=== PATIENT | male | born 1990 | race Caucasian/White ===

== ENCOUNTER 2017-06-04 17:19 | Emergency (ER) | payer SELFPAY ==
--- NOTE | 2017-06-04 18:03 | DIAGNOSTIC IMAGING REPORT ---
PROCEDURE: XR FOOT 3 VIEWS - LEFT INDICATION: TRAUMA/INJURY TECHNIQUE: Three views. COMPARISON: None. FINDINGS: Osseous structures and joint spaces are normal. IMPRESSION: 1. Normal left foot.
--- NOTE | 2017-06-04 18:43 | ED ORDER SUMMARY ---
..... Patient: GERALDO CABRERA OrderSheet [facility] VisitID: [id number] [address] [place] [address] 27y, M Registration Date/Time: 06/04/2017 ORDER SHEET Weight: 97.5 kg (stated) Allergies: No Known Drug Allergy GENERAL ORDERS: Foot 3V Left Urgent (17:33 06/04/2017 HBivens A.R.N.P.) (Ack 17:44 LNations ER Tech1) (17:53 [facility] Inocente Wrap (18:42 06/04/2017 HBivens A.R.N.P.) (18:50 DDean R.N.) MEDICATION ORDERS: Hydrocodone-APAP PO 5/325 mg (NOW, HIGH ALERT MEDICATION) (18:43 06/04/2017 HBivens A.R.N.P.) (Ack 18:44 DDean R.N.) (18:50 DDean R.N.) IV FLUIDS: ORDER SHEET NOTES: [Electronically signed by Gemma River R.N. (19:24 06/04/2017)] [Electronically signed by Courtney MorseR.N.P. (19:54 06/04/2017)] [Electronically locked/signed by Gemma River R.N. (19:24 06/04/2017)]
--- NOTE | 2017-06-04 18:43 | ED CLINICAL REPORT ---
Clinical Report - Physicians/Mid Levels [facility] [address] [place] [address] 06/04/2017 17:21 Patient: GERALDO CABRERA Time Seen: 1723; upon arrival, initial patient contact, initial documentation, patient care assumed. Arrived- By private vehicle. Historian- patient. HISTORY OF PRESENT ILLNESS Chief Complaint: Injury to the left foot. The injury happened today. Occurred on a street. The patient sustained a twisting injury while stepping down (stepping off curb and twisted foot). Patient is experiencing moderate pain. Patient denies injury to the head or neck. No other injury. REVIEW OF SYSTEMS The patient complains of pain on weight bearing. He has had swelling. He has had new onset of localized numbness of the left foot (mild), (- gone now, was only numb for a couple of hours, now it is throbbing). No tingling or weakness. PAST HISTORY Negative. SOCIAL HISTORY Light tobacco smoker. No alcohol use or drug use. No recent travel. Is a local resident. FAMILY HISTORY No significant family medical history. ADDITIONAL NOTES The nursing notes have been reviewed with agreement regarding the chief complaint, HPI, ROS, PMH and patient medications and allergies. PHYSICAL EXAM Vital Signs: 06/04/2017 17:22 BP: 131/82. HR: 88. RR: 20. O2 saturation: 99%. Temp: 97.9 F. Pain level now: 10. Have been reviewed as normal and appear to be correct. Appearance: Alert. Oriented X3. No acute distress. Head: Head atraumatic. Eyes: Pupils equal, round and reactive to light. Eyes normal inspection. Respiratory: No respiratory distress. Skin: Skin intact. Skin warm and dry. Extremities: Ankle injury present. Left foot: mild tenderness and swelling of the proximal lateral aspect of the foot. Neurovascular intact distally. No erythema, laceration, abrasion, ecchymosis or puncture wound. No foreign body or deformity. No limitation of weight bearing. No foot injury. Foot and ankle exam otherwise negative. Extremities otherwise negative. Gait: Abnormal gait. Gait not tested due to pain. Neuro, Vascular and Tendons: Vascular status intact. Sensation intact. Motor intact. Tendon function intact. Neuro: Oriented X 3. No motor deficit. No sensory deficit. Note: isolated injury to foot. LABS, X-RAYS, AND EKG X-Rays: Left foot negative. Lt Foot X-ray: (IMPRESSION: 1. Normal left foot. Electronically Final signed by:Kristian Howard MD 06/04/2017 6:04:05 PM). PROGRESS AND PROCEDURES Patient counseled in person regarding the patient's stable condition, test results and diagnosis. 18:13. Differential Diagnosis: Other possible considerations: foot sprain vs fx. Above considerations are based on history, physical exam and X-Ray data. Differential diagnosis was discussed with patient. Disposition: Discharged home in good and improved condition (18:43). Condition: good and stable. CLINICAL IMPRESSION Sprain of the tarsal ligaments of the left foot. INSTRUCTIONS Apply ice for 20 minutes four times a day for two days until better. Don't apply ice directly to skin. Wear elastic wrap (Inocente wrap) as directed for one weeks until better. Elevate affected areas above chest level for two days until better. You may walk and bear weight as tolerated. Do not work today, for two days. Warnings: GENERAL WARNINGS: Return or contact your physician immediately if your condition worsens or changes unexpectedly, if not improving as expected, or if other problems arise. Specifically return if problem worsens. Prescription Medications: Ultram 50 mg tablets: take 1-2 orally every 6 hours as needed for pain. Dispense twenty (20). No refills. Substitution is permissible. Follow-up: Follow up with your doctor in about one week as needed. Call for an appointment. Summary of care provided to patient. Understanding of the discharge instructions verbalized by patient. (Electronically signed by Courtney Morse A.R.N.P. 06/04/2017 19:54)
--- NOTE | 2017-06-04 18:43 | ED NURSING NOTES ---
Clinical Report - Nurses [facility] [address] [place] [address] 06/04/2017 17:21 Patient: GERALDO CABRERA TRIAGE Triage time 1722. Acuity: LEVEL 4. Chief Complaint: INJURY TO LEFT ANKLE and LEFT FOOT. 17:22. --17:32 Gemma River R.N. 17:22 06/04/17. BP: 131/82. HR: 88. RR: 20. O2 saturation: 99%. Temp: 97.9 F. Pain level now: 06/01. --17:32 Gemma River R.N. Weight: 97.5 kg stated. Height/Length: 74 inches Per Patient. BMI: 27.6. --17:30 Gemma River R.N. Medications Tylenol 650mg at 0200. --17:31 Gemma River R.N. Allergies No Known Drug Allergy. --17:30 Gemma River R.N. History Arrived by private vehicle. Historian: patient. Accompanied by friend. No primary care physician. This occurred (1030). Mechanism of injury: sustained a twisting injury (twisted after stepping down from curb, ankle gave way "I have a weak ankle on that side"). He has had numbness and trouble walking. PAST MEDICAL HX: ( chronic headaches). SURGERY HX: Tonsillectomy. SOCIAL HX: Light tobacco smoker (cigarette)- less than 1/2 a pack per day. No alcohol use or drug use. --17:32 Gemma River R.N. PROBLEMS: no known problems. Interventions ID band on patient. To treatment room. --17:32 Gemma River R.N. PHYSICAL ASSESSMENT 17:22. To room via wheelchair. GENERAL / NEURO / PSYCH: Oriented X 4. Appears in pain. EXTREMITIES: Limited ROM present. Capillary refill is less than 2 seconds in the extremities. Limping gait. He was unable to bear weight. Left foot: tenderness, swelling and ecchymosis. SKIN: Skin is warm and dry. --17:33 Gemma River R.N. NURSING PROGRESS NOTES 17:22. Cold pack applied. Reassurance given. Patient identifiers checked. Call light placed in reach. Side rails up. Bed placed in lowest position. Patient ready for evaluation- chart flagged. --17:32 Gemma River R.N. 17:45. ( port x-ray at bedside to do films). --18:20 Gemma River R.N. 18:45 06/04/2017 Hydrocodone-APAP (Hydrocodone-Acetaminophen) PO 5/325 mg Tablets 1 tab given. Allergies verified, confirmed 5 rights and sedative warning given to the patient. --18:50 Gemma River R.N. 18:40. 4 inch eric bandage applied to left ankle and left foot by nurse; distal pulses intact, sensation intact and motor function within normal limits. --18:51 Gemma River R.N. 18:45. ( po meds given for pain). --18:53 Gemma River R.N. DISPOSITION / DISCHARGE 18:55 06/04/17. Condition at departure: improved and stable. No learning barriers present. Discharge instructions provided and reviewed with the patient. Reviewed medication(s) (ultram). Treatments reviewed (ice, elevate, eric). Patient verbalized understanding. Written instructions provided in [place]. The patient was discharged home and accompanied by content development specialist. He left the Emergency Department in a wheelchair and via private vehicle. Fruit Harvester driving. --18:55 Gemma River R.N. 18:53 06/04/17. BP: 119/85. HR: 64. RR: 16. O2 saturation: 99%. Temp: deferred. Pain level now: 05/02. --18:55 Gemma River R.N. Departure time: 1899. --19:23 Gemma River R.N. Locked/Released at 06/04/2017 19:24 by Gemma River R.N.
--- NOTE | 2017-06-04 18:43 | ED NURSING NOTES ---
Clinical Report - Nurses Located Within [facility] [address] [place] [address] 06/04/2017 17:21 Patient: GERALDO CABRERA TRIAGE Triage time 1722. Acuity: LEVEL 4. Chief Complaint: INJURY TO LEFT ANKLE and LEFT FOOT. 17:22. --17:32 Gemma River R.N. 17:22 06/04/17. BP: 131/82. HR: 88. RR: 20. O2 saturation: 99%. Temp: 97.9 F. Pain level now: 06/01. --17:32 Gemma River R.N. Weight: 97.5 kg stated. Height/Length: 74 inches Per Patient. BMI: 27.6. --17:30 Gemma River R.N. Medications Tylenol 650mg at 0200. --17:31 Gemma River R.N. Allergies No Known Drug Allergy. --17:30 Gemma River R.N. History Arrived by private vehicle. Historian: patient. Accompanied by friend. No primary care physician. This occurred (1030). Mechanism of injury: sustained a twisting injury (twisted after stepping down from curb, ankle gave way "I have a weak ankle on that side"). He has had numbness and trouble walking. PAST MEDICAL HX: ( chronic headaches). SURGERY HX: Tonsillectomy. SOCIAL HX: Light tobacco smoker (cigarette)- less than 1/2 a pack per day. No alcohol use or drug use. --17:32 Gemma River R.N. PROBLEMS: no known problems. Interventions ID band on patient. To treatment room. --17:32 Gemma River R.N. PHYSICAL ASSESSMENT 17:22. To room via wheelchair. GENERAL / NEURO / PSYCH: Oriented X 4. Appears in pain. EXTREMITIES: Limited ROM present. Capillary refill is less than 2 seconds in the extremities. Limping gait. He was unable to bear weight. Left foot: tenderness, swelling and ecchymosis. SKIN: Skin is warm and dry. --17:33 Gemma River R.N. NURSING PROGRESS NOTES 17:22. Cold pack applied. Reassurance given. Patient identifiers checked. Call light placed in reach. Side rails up. Bed placed in lowest position. Patient ready for evaluation- chart flagged. --17:32 Gemma River R.N. 17:45. ( port x-ray at bedside to do films). --18:20 Gemma River R.N. 18:45 06/04/2017 Hydrocodone-APAP (Hydrocodone-Acetaminophen) PO 5/325 mg Tablets 1 tab given. Allergies verified, confirmed 5 rights and sedative warning given to the patient. --18:50 Gemma River R.N. 18:40. 4 inch eric bandage applied to left ankle and left foot by nurse; distal pulses intact, sensation intact and motor function within normal limits. --18:51 Gemma River R.N. 18:45. ( po meds given for pain). --18:53 Gemma River R.N. DISPOSITION / DISCHARGE 18:55 06/04/17. Condition at departure: improved and stable. No learning barriers present. Discharge instructions provided and reviewed with the patient. Reviewed medication(s) (ultram). Treatments reviewed (ice, elevate, eric). Patient verbalized understanding. Written instructions provided in Malawian. The patient was discharged home and accompanied by college associate. He left the Emergency Department in a wheelchair and via private vehicle. Final Assembly Worker driving. --18:55 Gemma River R.N. 18:53 06/04/17. BP: 119/85. HR: 64. RR: 16. O2 saturation: 99%. Temp: deferred. Pain level now: 05/02. --18:55 Gemma River R.N. Departure time: 1899. --19:23 Gemma River R.N. Locked/Released at 06/04/2017 19:24 by Gemma River R.N.
--- NOTE | 2017-06-04 18:43 | ED ORDER SUMMARY ---
..... Patient: GERALDO CABRERA OrderSheet [facility] VisitID: [id number] [address] [place] [address] 27y, M Registration Date/Time: 06/04/2017 ORDER SHEET Weight: 97.5 kg (stated) Allergies: No Known Drug Allergy GENERAL ORDERS: Foot 3V Left Urgent (17:33 06/04/2017 HBivens A.R.N.P.) (Ack 17:44 LNations ER Tech1) (17:[facility] Inocente Wrap (18:42 06/04/2017 HBivens A.R.N.P.) (18:50 DDean R.N.) MEDICATION ORDERS: Hydrocodone-APAP PO 5/325 mg (NOW, HIGH ALERT MEDICATION) (18:43 06/04/2017 HBivens A.R.N.P.) (Ack 18:44 DDean R.N.) (18:50 DDean R.N.) IV FLUIDS: ORDER SHEET NOTES: [Electronically signed by Gemma River R.N. (19:24 06/04/2017)] [Electronically signed by Courtney MorseR.N.P. (19:54 06/04/2017)] [Electronically locked/signed by Gemma River R.N. (19:24 06/04/2017)]
--- NOTE | 2017-06-04 19:54 | ED MED RECONCILIATION SUMMARY ---
Patient: GERALDO CABRERA Medication Reconciliation Report [facility] VisitID: [id number] [address] [place] [address] 27y, M Registration Date/Time: 06/04/2017 Weight: 97.5 kg Height/Length: 74 in. BMI: 27.6 ALLERGIES: No Known Drug Allergy The patient's Home Medications are listed below: THE FOLLOWING MEDICATIONS NEED TO BE RECONCILED: Tylenol 650mg at 0200 The source(s) of the original Home Medication information: Not obtained. The following Medications were given to the patient in the Emergency Department: Hydrocodone-APAP [PO] PO 1 tab, administered: 06/04/2017 6:45:00 PM The following Medications were prescribed to the patient: Ultram 50 mg tablets: take 1-2 orally every 6 hours as needed for pain. Dispense twenty (20). No refills. Substitution is permissible. -- Courtney Morse A.R.N.P.
--- NOTE | 2017-06-04 19:54 | ED MED RECONCILIATION SUMMARY ---
Patient: GERALDO CABRERA Medication Reconciliation Report [facility] VisitID: [id number] [address] [place] [address] 27y, M Registration Date/Time: 06/04/2017 Weight: 97.5 kg Height/Length: 74 in. BMI: 27.6 ALLERGIES: No Known Drug Allergy The patient's Home Medications are listed below: THE FOLLOWING MEDICATIONS NEED TO BE RECONCILED: Tylenol 650mg at 0200 The source(s) of the original Home Medication information: Not obtained. The following Medications were given to the patient in the Emergency Department: Hydrocodone-APAP [PO] PO 1 tab, administered: 06/04/2017 6:45:00 PM The following Medications were prescribed to the patient: Ultram 50 mg tablets: take 1-2 orally every 6 hours as needed for pain. Dispense twenty (20). No refills. Substitution is permissible. -- Courtney Morse A.R.N.P.
--- NOTE | 2017-06-04 19:54 | ED MAR SUMMARY ---
..... Medication Administration Record [facility] [address] [place] [address] Patient: GERALDO CABRERA Visit ID: [id number] 27y, M Weight: 97.5 kg Height/Length: 74 in BMI: 27.6 ALLERGIES: No Known Drug Allergy Given 18:45 06/04/2017 Perico, Ebony Menendez Medication Administered: HYDROCODONE-APAP [PO] (HYDROCODONE-ACETAMINOPHEN), Dose: 1 tab 5/325 mg Tablets PO. Medication Ordered: Hydrocodone-APAP PO 5/325 mg (NOW, HIGH ALERT MEDICATION).
--- NOTE | 2017-06-04 19:54 | ED DISCHARGE INSTRUCTIONS ---
Patient: GERALDO CABRERA General Instructions [facility] VisitID: [id number] [place] [address] 27y, M Registration Date/Time: 06/04/2017 Sprain of the tarsal ligaments of the left foot. INSTRUCTIONS Apply ice for 20 minutes four times a day for two days until better. Don't apply ice directly to skin. Wear elastic wrap (Inocente wrap) as directed for one weeks until better. Elevate affected areas above chest level for two days until better. You may walk and bear weight as tolerated. Do not work today, for two days. Warnings: GENERAL WARNINGS: Return or contact your physician immediately if your condition worsens or changes unexpectedly, if not improving as expected, or if other problems arise. Specifically return if problem worsens. Prescription Medications: Ultram 50 mg tablets: take 1-2 orally every 6 hours as needed for pain. Dispense twenty (20). No refills. Substitution is permissible. Follow-up: Follow up with your doctor in about one week as needed. Call for an appointment. Summary of care provided to patient. Understanding of the discharge instructions verbalized by patient. ADDITIONAL INFORMATION Sprain, Foot A sprain is a stretching or tearing of the ligaments that hold a joint together. There are no broken bones. Sprains take from 36 weeks to heal. A sprain may be treated with a splint, walking cast or special boot. Mild sprains may not require any additional support. Home care The following guidelines will help you care for your injury at home: Keep your leg elevated when sitting or lying down. This is very important during the first 48 hours to reduce swelling. Stay off the injured foot as much as possible until you can walk on it without pain. If needed, you may use crutches during the first week for this purpose. (Crutches can be rented at many pharmacies or surgical/orthopedic supply stores). You may be given a cast shoe to wear to prevent movement in your foot. If not, you can use a sandal or any shoe that does not put pressure on the injured area until the swelling and pain go away. If using a sandal, be careful not to strike your foot against anything, since another injury could make the sprain worse. Apply an ice pack (ice cubes in a plastic bag, wrapped in a towel) over the injured area for 20 minutes every 12 hours the first day. You should continue with ice packs 34 times a day for the next two days. Continue the use of ice packs for relief of pain and swelling as needed. You may use acetaminophen or ibuprofen to control pain, unless another medicine was prescribed. If you have chronic liver or kidney disease or ever had a stomach ulcer or GI bleeding, talk with your doctor before using these medicines. If you were given a splint or cast, keep it dry. Bathe with your splint/cast well out of the water, protected with a large plastic bag, rubber-banded at the top end. If a fiberglass splint or cast gets wet, you can dry it with a hair-dryer. You may return to sports after healing, when you can run without pain. Follow-up care Follow up with your doctor as directed. Any X-rays you had today dont show any broken bones, breaks, or fractures. Sometimes fractures dont show up on the first X-ray. Bruises and sprains can sometimes hurt as much as a fracture. These injuries can take time to heal completely. If your symptoms dont improve or they get worse, talk with your doctor. You may need a repeat X-ray. When to seek medical care Get prompt medical attention if any of the following occur: The plaster cast or splint gets wet or soft The fiberglass cast or splint gets wet and does not dry for 24 hours Pain or swelling increases, or redness appears Toes become cold, blue, numb, or tingly Inocente Wrap An "Inocente Bandage" refers to any elastic bandage wrap (2-6" wide). This is used to apply support and compression to an arm or leg. It will help prevent or reduce swelling also. When applying the bandage, it should not be stretched too tightly. A tight Inocente Wrap will reduce circulation and cause tingling or numbness in the hand or foot. It may increase the pain under the bandage. If you get these symptoms, remove the wrap and rest the limb. Symptoms should go away within 1-2 hours. Once symptoms go away, reapply the bandage with less stretch. If symptoms do not go away after 1-2 hours with the bandage off, call your doctor or return to this facility promptly. Tramadol Hydrochloride Oral tablet What is this medicine? TRAMADOL (TRA ma dole) is a pain reliever. It is used to treat moderate to severe pain in adults. How should I use this medicine? Take this medicine by mouth with a full glass of water. Follow the directions on the prescription label. If the medicine upsets your stomach, take it with food or milk. Do not take more medicine than you are told to take. Talk to your reproduction artist regarding the use of this medicine in children. Special care may be needed. What side effects may I notice from receiving this medicine? Side effects that you should report to your doctor or health acute care clinical nurse specialist as soon as possible: allergic reactions like skin rash, itching or hives, swelling of the face, lips, or tongue breathing difficulties, wheezing confusion itching light headedness or fainting spells redness, blistering, peeling or loosening of the skin, including inside the mouth seizures Side effects that usually do not require medical attention (report to your doctor or health acute care clinical nurse specialist if they continue or are bothersome): constipation dizziness drowsiness headache nausea, vomiting What may interact with this medicine? Do not take this medicine with any of the following medications: MAOIs like Carbex, Eldepryl, Marplan, Nardil, and Parnate This medicine may also interact with the following medications: alcohol or medicines that contain alcohol antihistamines benzodiazepines bupropion carbamazepine or oxcarbazepine clozapine cyclobenzaprine digoxin furazolidone linezolid medicines for depression, anxiety, or psychotic disturbances medicines for migraine headache like almotriptan, eletriptan, frovatriptan, naratriptan, rizatriptan, sumatriptan, zolmitriptan medicines for pain like pentazocine, buprenorphine, butorphanol, meperidine, nalbuphine, and propoxyphene medicines for sleep muscle relaxants naltrexone phenobarbital phenothiazines like perphenazine, thioridazine, chlorpromazine, mesoridazine, fluphenazine, prochlorperazine, promazine, and trifluoperazine procarbazine warfarin What if I miss a dose? If you miss a dose, take it as soon as you can. If it is almost time for your next dose, take only that dose. Do not take double or extra doses. Where should I keep my medicine? Keep out of the reach of children. Store at room temperature between 15 and 30 degrees C (59 and 86 degrees F). Keep container tightly closed. Throw away any unused medicine after the expiration date. What should I tell my health care provider before I take this medicine? They need to know if you have any of these conditions: brain tumor depression drug abuse or addiction head injury if you frequently drink alcohol containing drinks kidney disease or trouble passing urine liver disease lung disease, asthma, or breathing problems seizures or epilepsy suicidal thoughts, plans, or attempt; a previous suicide attempt by you or a family member an unusual or allergic reaction to tramadol, codeine, other medicines, foods, dyes, or preservatives or trying to get breast-feeding What should I watch for while using this medicine? Tell your doctor or health acute care clinical nurse specialist if your pain does not go away, if it gets worse, or if you have new or a different type of pain. You may develop tolerance to the medicine. Tolerance means that you will need a higher dose of the medicine for pain relief. Tolerance is normal and is expected if you take this medicine for a long time. Do not suddenly stop taking your medicine because you may develop a severe reaction. Your body becomes used to the medicine. This does NOT mean you are addicted. Addiction is a behavior related to getting and using a drug for a non-medical reason. If you have pain, you have a medical reason to take pain medicine. Your doctor will tell you how much medicine to take. If your doctor wants you to stop the medicine, the dose will be slowly lowered over time to avoid any side effects. You may get drowsy or dizzy. Do not drive, use machinery, or do anything that needs mental alertness until you know how this medicine affects you. Do not stand or sit up quickly, especially if you are an older patient. This reduces the risk of dizzy or fainting spells. Alcohol can increase or decrease the effects of this medicine. Avoid alcoholic drinks. You may have constipation. Try to have a bowel movement at least every 2 to 3 days. If you do not have a bowel movement for 3 days, call your doctor or health acute care clinical nurse specialist. Your mouth may get dry. Chewing sugarless gum or sucking hard candy, and drinking plenty of water may help. Contact your doctor if the problem does not go away or is severe. You have been given the following additional information: Sprain, Foot Inocente Wrap Tramadol Hydrochloride Oral tablet You may walk and bear weight as tolerated. Do not work today, for two days. (Electronically signed by Courtney Morse A.R.N.P. 06/04/2017 19:54)
--- NOTE | 2017-06-04 19:54 | ED MAR SUMMARY ---
..... Medication Administration Record [facility] [address] [place] [address] Patient: GERALDO CABRERA Visit ID: [id number] 27y, M Weight: 97.5 kg Height/Length: 74 in BMI: 27.6 ALLERGIES: No Known Drug Allergy Given 18:45 06/04/2017 Perico, Ebony Menendez Medication Administered: HYDROCODONE-APAP [PO] (HYDROCODONE-ACETAMINOPHEN), Dose: 1 tab 5/325 mg Tablets PO. Medication Ordered: Hydrocodone-APAP PO 5/325 mg (NOW, HIGH ALERT MEDICATION).
== END 2017-06-04 19:00 | disposition home or self-care (01) ==
LOC: ED SRH 17:19
DX: S93.612A Sprain of tarsal ligament of left foot, initial encounter (principal); X50.0XXA Overexertion from strenuous movement or load, initial encounter; Y92.410 Unspecified street and highway as the place of occurrence of the external cause; F17.210 Nicotine dependence, cigarettes, uncomplicated